=== PATIENT | male | born 1935 | race Caucasian/White ===

== ENCOUNTER 2018-09-10 10:42 | Emergency (ER) | payer MEDICARE, MEDICAID ==
[2018-09-10 10:48] VITALS: BP 132/73
[2018-09-10 12:08] LABS: ANION GAP 12.3; CHLORIDE,CL 97 mmol/L (101-111); SODIUM,NA 130 mmol/L (135-145)
[2018-09-10] MEDS ORDERED: Iopamidol 612 MG/ML 75 ML Bottle IVPUSH ONE (12:13)
[2018-09-10] MEDS ORDERED: Sodium Chloride 0.9% 10 ML Syringe FLUSH PRN (12:14)
[2018-09-10] MEDS ORDERED: LORazepam 2 MG/ML Syringe IVPUSH ONE (12:50)
--- NOTE | 2018-09-10 13:27 | CT ---
Clinical history: 83-year-old obese mentally challenged male with abdominal pain, clinically "worsening". Scan technique: Volume acquisition of data emergency CT scan abdomen and pelvis obtained without oral contrast but during intravenous ministration 75 cc nonionic Isovue contrast (3 cc/s via injector) while patient was lying supine on the Siemens multi slice CT scanner [place], [place]. Respiratory motion artifact. All data archived in the PACS system for storage, reformatting and study. Interpretation: 1. The liver is shifted to the left (midline) with the distended gallbladder now in the LUQ (no intraluminal calcifications or associated intra/extrahepatic biliary duct dilatation). Hepatic size/configuration and normal spleen high LUQ beneath diaphragm. 2. Small sliding hiatus hernia. Stomach, pancreas, adrenal glands and kidneys unremarkable. No renal stones or obstruction. 3. Midline urinary bladder extends up with the dome at the level of the umbilicus (bladder not particularly distended; no stones). 4. Stool concentrated in the rectosigmoid colon and diverticula scattered in the descending left colon but no sign of bowel mass or mechanical obstruction. Normal appendix RLQ. No mesenteric/retroperitoneal lymphadenopathy. No ascites/free air. 5. Normal caliber aortoiliac vessels. Chronic lower thoracic disc disease. Normal lumbar spine. 6. Bibasilar platelike atelectasis. CONCLUSION: Obstipation. Unusual location/anatomy liver. Bibasilar atelectasis/bronchiectasis. No acute intraperitoneal abnormality i.e. no mass, lymphadenopathy, ascites, signs of mechanical bowel obstruction or free air.
--- NOTE | 2018-09-13 11:27 | ER ---
SUBJECTIVE: The patient is an 83-year-old male who is brought in because of some suspected abdominal discomfort. He has not had a stool for 7 days according to his caregivers. The patient has significant mental retardation and lives in a facility. No fevers, no trauma, no bleeding. His bladder function has not changed, but he did have 3 episodes of nonbloody nausea, vomiting. Recently, he was also diagnosed with pneumonia, he is on antibiotics including Levaquin. He is taking and tolerating his medicines well. PAST MEDICAL HISTORY: Significant for chronic constipation, mental retardation, polyuria, varicose veins. CURRENT MEDICATIONS: Include: 1. Vitamin D3. 2. Docusate sodium 100 mg p.o. b.i.d. 3. Multivitamin p.o. daily. ALLERGIES: He has no allergies. SOCIAL HISTORY: Lives at a facility. He has MR, no substance abuse. REVIEW OF SYSTEMS: Did have a recent pneumonia, he is doing well with this. No fevers. He did have 3 episodes of nonbloody nausea and vomiting. No bowel movement for 7 days. Caregivers wonder if he has abdominal pain. OBJECTIVE: Vital Signs: Stable. He is afebrile. Oxygen is 97% on room air. General: Pleasant, no distress. HEENT: Normocephalic, atraumatic. No respiratory distress. Moving air well. General: He is obese. Abdomen: Soft, benign. It does not appear to be tender and it is obese. Unsure if more obese than normal or any further distention than normal. Back: Nontender, unremarkable. LABORATORY DATA/STUDIES: White count is normal at 7.2, hemoglobin and hematocrit are 13.7 and 41.1. Sodium was 130. Potassium is normal. BUN and creatinine are normal. Lactic acid is normal at 0.8. LFTs and total bili are normal. Amylase is normal. CAT scan of his abdomen because of the 7 days of no stool, suspected pain and because of his MR and inability to provide a good history, was obtained to make sure the patient does not have diverticulitis, bowel obstruction, or other acute findings. The CAT scan abdomen and pelvis was not remarkable for acute findings except obstipation and abundant stool. ASSESSMENT: Constipation/obstipation in patient with history of chronic constipation. PLAN: Recommend increase fluids, fiber, keep active, fresh fruits and vegetables, more grains, give patient raisins and prunes as needed. Purchase a bottle of magnesium citrate, and feed to patient per bottle instructions. I will recommend enemas at facility as needed. Follow up with PCP next week. [facility] /[id number]
== END 2018-09-10 14:05 | disposition home or self-care (01) ==
LOC: DL.ED 10:42
DX: K59.00 Constipation, unspecified (principal); Z79.899 Other long term (current) drug therapy
CPT/HCPCS: 36415; 74177; 80053; 82150; 83605; 85025; 87040; 96374; 99284; J2060; Q9967

== ENCOUNTER 2020-08-09 15:19 | Emergency (ER) | payer MEDICARE, MEDICAID ==
[2020-08-09] MEDS ORDERED: Lidocaine 2% Jelly 10 ML Urojet MUCMEM ONE (15:24)
[2020-08-09 15:30] VITALS: BP 123/98; PULSE 84
--- NOTE | 2020-08-09 16:03 | EDM.PDOC ---
<Joe Ingram - Last Filed: 08/09/20 18:25> ED HPI GENERAL MEDICAL PROBLEM - General Chief Complaint: Abdominal Pain Stated Complaint: URINATING PROBLEMS Time Seen by Provider: 08/09/20 15:30 Source of Information: Reports: Old Records, Provider (Bree Young NP), RN, RN Notes Reviewed History Limitations: Reports: Other (Severe M.R. non-verbal pt) - History of Present Illness INITIAL COMMENTS - FREE TEXT/NARRATIVE: Pt sent to ER by Bree Young NP with report that the pt who resides at a nursing home has not had a BM for 5 days, and has not passed any urine for about 24 hours. Pt is non-verbal. Caregiver and nursing home nurse do not think the pt has had any fever and denies vomiting. Onset Date: 08/04/20 Duration: Constant Location: Reports: Abdomen Improves with: Reports: None Worsens with: Reports: None Associated Symptoms: Reports: No Other Symptoms - Related Data Allergies Allergy/AdvReac Type Severity Reaction Status Date / Time No Known Allergies Allergy Verified 08/09/20 15:43 Home Meds: Home Meds Cholecalciferol (Vitamin D3) [Vitamin D] 1,000 unit PO DAILY 08/10/14 [History] Docusate Sodium [Colace] 100 mg PO BID 08/10/14 [History] Multivitamin with Minerals [Multiple Vitamin] 1 tab PO DAILY 08/10/14 [History] Ciprofloxacin [Ciprofloxacin HCl] 250 mg PO BID 08/09/20 [History] Magnesium Hydroxide [Milk of Magnesia] 30 ml PO DAILY PRN 08/09/20 [History] Past Medical History HEENT History: Reports: None Cardiovascular History: Reports: None Respiratory History: Reports: None Gastrointestinal History: Reports: Chronic Constipation, Other (See Below) Other Gastrointestinal History: PICA Genitourinary History: Reports: Prostate Disorder, Other (See Below) Other Genitourinary History: frequency of micturition Musculoskeletal History: Reports: None Neurological History: Reports: Speech Problems, Other (See Below) Other Neuro History: Patient is non-verbal, severe mental handicap Psychiatric History: Reports: Other (See Below) Other Psychiatric History: Pica Endocrine/Metabolic History: Reports: None Hematologic History: Reports: None Immunologic History: Reports: None Oncologic (Cancer) History: Reports: None Dermatologic History: Reports: None, Other (See Below) Other Dermatologic History: vericose veins - Infectious Disease History Infectious Disease History: Reports: None - Past Surgical History Head Surgeries/Procedures: Reports: None Social & Family History - Family History Family Medical History: No Pertinent Family History - Tobacco Use Tobacco Use Status *Q: Never Tobacco User Second Hand Smoke Exposure: No - Caffeine Use Caffeine Use: Reports: None - Recreational Drug Use Recreational Drug Use: No - Living Situation & Occupation Living situation: Reports: Single, Extended Care Facility Occupation: Disabled ED ROS GENERAL - Review of Systems Review Of Systems: Unable To Obtain Reason Not Obtained: non-verbal pt ED EXAM, GI/ABD - Physical Exam Exam: See Below Exam Limited By: No Limitations General Appearance: Alert, No Apparent Distress Nose: Normal Inspection Throat/Mouth: No Airway Compromise Head: Atraumatic, Normocephalic Neck: Normal Inspection Respiratory/Chest: No Respiratory Distress, Lungs Clear, Decreased Breath Sounds Cardiovascular: Regular Rate, Rhythm GI/Abdominal Exam: Normal Bowel Sounds, Soft, No Distention. No: Rigid, Rebound, Tender (Male) Exam: Deferred Rectal (Males) Exam: Deferred Neurological: Alert, Other (Severe M.R.) Course - Radiology Interpretation Free Text/Narrative:: CT Abdomen/Pelvis: Obstipation, Distended gallbladder RUQ. No SBO per Rad. report. - Re-Assessments/Exams Free Text/Narrative Re-Assessment/Exam: 08/09/20 19:00 Care of pt transferred to Christine Humphrey [employer] at shift change. Departure - Departure Disposition: Home, Self-Care 01 Condition: Good Clinical Impression: Obstipation, Acute urinary retention - Discharge Information *PRESCRIPTION DRUG MONITORING PROGRAM REVIEWED*: Not Applicable *COPY OF PRESCRIPTION DRUG MONITORING REPORT IN PATIENT CLAUDIA: Not Applicable Instructions: Constipation, Adult, Acute Urinary Retention, Male Forms: ED Department Discharge Additional Instructions: Follow up with your primary care facility. Return to ER with any worsening of problems. Sepsis Event Note (ED) - Evaluation Sepsis Screening Result: No Definite Risk <Christine Humphrey - Last Filed: 08/09/20 20:24> Course - Vital Signs Last Recorded V/S: Last Vital Signs Temp 97.4 F 08/09/20 15:26 Pulse 84 08/09/20 15:26 Resp 18 08/09/20 15:26 BP 123/98 H 08/09/20 15:26 Pulse Ox 98 08/09/20 15:26 - Orders/Labs/Meds Orders: Active Orders 24 hr Category Date Time Status Bladder Scan [RC] ASDIRECTED Care 08/09/20 15:26 Active Enema [RC] ASDIRECTED Care 08/09/20 16:27 Active Insert Souza Catheter [Insert Urinary Catheter] [OM.PC] Care 08/09/20 15:23 Ordered Stat Remove Souza Catheter [Urinary Catheter Removal] [RC] Care 08/09/20 16:31 Active PER UNIT ROUTINE Urinary Catheter Assessment [RC] ASDIRECTED Care 08/09/20 15:24 Active Labs: Laboratory Tests 08/09/20 08/09/20 08/09/20 Range/Units 15:40 15:48 15:48 WBC 4.3 L (5.0-10.0) 10^3/uL RBC 4.47 L (4.6-6.2) 10^6/uL Hgb 14.2 (14.0-18.0) g/dL Hct 43.2 (40.0-54.0) % MCV 96.6 (80-100) fL MCH 31.8 (27.0-34.0) pg MCHC 32.9 L (33.0-35.0) g/dL Plt Count 115 L D (150-450) 10^3/uL Neut % (Auto) 53.6 (42.2-75.2) % Lymph % (Auto) 25.7 (20.5-50.1) % Roberts % (Auto) 17.5 H (2-8) % Eos % (Auto) 3.0 (1.0-3.0) % Baso % (Auto) 0.2 (0.0-1.0) % Sodium 140 (136-145) mmol/L Potassium 4.2 (3.5-5.1) mmol/L Chloride 101 (98-107) mmol/L Carbon Dioxide 30 (21-32) mmol/L Anion Gap 13.2 H (7-13) mEq/L BUN 20 H (7-18) mg/dL Creatinine 0.97 (0.70-1.30) mg/dL Est Cr Clr Drug Dosing 42.22 mL/min Estimated GFR (MDRD) > 60 Glucose 88 (74-99) mg/dL Calcium 8.8 (8.5-10.1) mg/dL Urine Color Dark yellow (YELLOW) Urine Appearance Clear (CLEAR) Urine pH 5.5 (5.0-9.0) Ur Specific [place] >= 1.030 (1.005-1.030) Urine Protein Negative (NEGATIVE) Urine Glucose (UA) Negative (NEGATIVE) Urine Ketones Negative (NEGATIVE) Urine Occult Blood Negative (NEGATIVE) Urine Nitrite Negative (NEGATIVE) Urine Bilirubin Negative (NEGATIVE) Urine Urobilinogen 0.2 (0.2-1.0) mg/dL Ur Leukocyte Esterase Negative (NEGATIVE) Meds: Medications Discontinued Medications Generic Name Dose Route Start Last Admin Trade Name Freq PRN Reason Stop Dose Admin Bisacodyl 10 mg 08/09/20 16:22 08/09/20 16:48 Dulcolax PO 08/09/20 16:23 10 mg ONETIME ONE Administration Lactulose 20 gm 08/09/20 16:22 08/09/20 16:48 Cephulac PO 08/09/20 16:23 20 gm ONETIME ONE Administration Lactulose 20 gm 08/09/20 18:50 08/09/20 19:11 Cephulac PO 08/09/20 18:51 20 gm ONETIME ONE Administration Lidocaine HCl 10 ml 08/09/20 15:24 08/09/20 16:06 Xylocaine 2% Jelly MUCMEM 08/09/20 15:25 Not Given ONETIME ONE - Re-Assessments/Exams Free Text/Narrative Re-Assessment/Exam: 08/09/20 20:23 Nursing staff called with report of 2 medium hard stools, and 1 very large soft stool. Departure - Departure Time of Disposition: 20:23 Sepsis Event Note (ED) - Focused Exam Vital Signs: Vital Signs Temp Pulse Resp BP Pulse Ox 08/09/20 15:26 97.4 F 84 18 123/98 H 98
[2020-08-09] MEDS ORDERED: Lactulose Soln 10 GM/15 ML 30 ML UD Cup PO ONE ×2 (16:22→18:50)
[2020-08-09] MEDS ORDERED: Bisacodyl 5 MG Tab PO ONE (16:22)
[2020-08-09 16:27] LABS: ANION GAP 13.2 mEq/L (7-13); CHLORIDE,CL 101 mmol/L (98-107); SODIUM,NA 140 mmol/L (136-145)
--- NOTE | 2020-08-09 16:35 | CT ---
EXAMINATION: Abdomen Pelvis wo Cont SEX: Male AGE: 85 years CLINICAL HISTORY: 85-year-old 162 pound male "REM" patient has had "no bowel movement for the past 5 days and no urinary output past 24 hours". Retention? Comparison exam 10 September 2018 revealed "obstipation" (no signs of mechanical bowel obstruction). Scan technique: Volume acquisition of data emergency unenhanced CT scan of the abdomen and pelvis obtained with the patient lying supine on the Siemens multislice scanner [place], [place]. All data archived PACS system for storage, reformatting axial/sagittal/coronal planes, study. Interpretation: 1. Indwelling catheter (Souza balloon inflated with air and liquid) tip appears pressed against thickened anterior wall of the empty urinary bladder. No bladder stones. 2. Symmetric reniform size axis and configuration. No sign of cortical mass lesion (unenhanced exam), nephrolithiasis or obstructive uropathy i.e. no pyelocaliectasis or ureterectasis. Serum creatinine? GFR? 3. Large volume of stool impacted in the rectum and concentrated in the splenic flexure of the colon. No pelvic or abdominal mass lesion. No mesenteric or retroperitoneal lymphadenopathy. No foreign bodies. 4. No inflammatory "dirty" peritoneal fat, ventral wall defect, signs of mechanical bowel obstruction, ascites or free intraperitoneal air. 5. Distended gallbladder RUQ (no calcified gallstones). Unenhanced liver, stomach, spleen, atrophic pancreas, and adrenal glands unremarkable. 6. Normal caliber aortoiliac vessels. Chronic disc disease T11-12. Large heart. Lung bases clear. CONCLUSION: Obstipation. Distended gallbladder RUQ. Indwelling urinary bladder catheter. No sign of mechanical bowel obstruction or acute peritonitis.
== END 2020-08-09 20:40 | disposition home or self-care (01) ==
LOC: DL.ED 15:19
DX: K59.00 Constipation, unspecified (principal); R33.9 Retention of urine, unspecified
CPT/HCPCS: 36415; 51798; 74176; 80048; 81003; 85025; 99284; A9270; 99283

== ENCOUNTER 2022-06-20 13:00 | Emergency (ER) | payer MEDICARE, MEDICAID ==
[2022-06-20 13:13] VITALS: BP 138/63; PULSE 97
[2022-06-20 13:32] LABS: ANION GAP 8.6 mEq/L (7-13); CHLORIDE,CL 103 mmol/L (98-107); SODIUM,NA 139 mmol/L (136-145)
[2022-06-20 13:36] LABS: ESTIMATED GFR 68 mL/min (>=60)
[2022-06-20 14:21] LABS: CORONAVIRUS COVID-19 NAA NEGATIVE (NEGATIVE); RESPIRATORY SYNCYTIAL VIR NAA NEGATIVE (NEGATIVE)
== END 2022-06-20 15:34 ==
LOC: DL.ED 13:00
DX: J18.9 Pneumonia, unspecified organism (principal); Z20.822 Contact with and (suspected) exposure to COVID-19
CPT/HCPCS: 0241U; 36415; 71045; 80053; 81001; 83605; 83735; 84145; 85025; 86140; 99285; C1758

== ENCOUNTER 2022-07-17 04:00 | Inpatient (IN) | payer MEDICARE, MEDICAID ==
[2022-07-17] MEDS ORDERED: Sodium Chloride 0.9% 1,000 ML IV ONE ×2 (04:07→04:33)
[2022-07-17] MEDS ORDERED: Ondansetron 4 MG/2 ML SDV IVPUSH ONE (04:34)
[2022-07-17] MEDS ORDERED: Pantoprazole 40 MG Vial IVPUSH ONE (04:42)
[2022-07-17 05:04] LABS: CORONAVIRUS COVID-19 NAA NEGATIVE (NEGATIVE); RESPIRATORY SYNCYTIAL VIR NAA NEGATIVE (NEGATIVE)
[2022-07-17 05:28] LABS: ANION GAP 10.4 mEq/L (7-13); CHLORIDE,CL 116 mmol/L (98-107); SODIUM,NA 146 mmol/L (136-145)
[2022-07-17 05:32] LABS: ESTIMATED GFR 88 mL/min (>=60)
[2022-07-17] MEDS ORDERED: Ondansetron 4 MG/2 ML SDV IVPUSH PRN (06:27)
[2022-07-17] MEDS ORDERED: Acetaminophen/HYDROcodone 325-5 MG Tab PO PRN (06:27)
[2022-07-17] MEDS ORDERED: Albuterol/Ipratropium 3.0-0.5 MG/3 ML Neb Soln NEB PRN (06:27)
[2022-07-17] MEDS ORDERED: Acetaminophen 325 MG Tab PO PRN (06:27)
[2022-07-17] MEDS ORDERED: HYDROmorphone 0.5 MG/0.5 ML Syringe IVPUSH PRN (06:27)
[2022-07-17] MEDS ORDERED: Norepinephrine 4 MG in Dextrose 5% in Water 246 ML IV SCH ×2 (06:45)
[2022-07-17] MEDS: Midodrine 2.5 MG Tab PO SCH ×5 (09:25→21:00)
[2022-07-17] MEDS: Sucralfate Suspension 1 GM/10 ML Cup PO SCH ×3 (10:16→19:52)
[2022-07-17] MEDS: Pantoprazole 40 MG in Sodium Chloride 0.9% 100 ML IV SCH ×3 (10:23→20:40)
[2022-07-17] MEDS ORDERED: Potassium Chloride 20 MEQ in Premix Bag 1 BAG IV ONE (12:24)
[2022-07-17] MEDS ORDERED: Dextrose 5%-Lactated Ringers 1,000 ML IV SCH (12:30)
[2022-07-18] MEDS: Sucralfate Suspension 1 GM/10 ML Cup PO SCH ×3 (00:48→11:08)
[2022-07-18] MEDS: Sodium Chloride 0.9% 10 ML Syringe FLUSH PRN ×2 (01:03→08:21)
[2022-07-18 07:05] LABS: ANION GAP 9.1 mEq/L (7-13)
[2022-07-18 08:09] VITALS: BP 111/60; PULSE 74
[2022-07-18] MEDS: Midodrine 2.5 MG Tab PO SCH (08:31)
[2022-07-18] MEDS ORDERED: Magnesium Sulfate/Water 2 GM in Premix Bag 1 BAG IV ONE (09:00)
== END 2022-07-18 11:55 | disposition home or self-care (01) | DRG 378 ==
LOC: DL.ED 04:00 → DL.MS 05:30
PROVIDERS: ADMIT Internal Medicine; ATTEND Internal Medicine
PROC: 30233N1 Transfusion of Nonautologous Red Blood Cells into Peripheral Vein, Percutaneous Approach (ICD-10-PCS; principal; 2022-07-17)
DX: K92.2 Gastrointestinal hemorrhage, unspecified (principal); E44.0 Moderate protein-calorie malnutrition; E87.1 Hypo-osmolality and hyponatremia; D50.9 Iron deficiency anemia, unspecified; I95.9 Hypotension, unspecified; D75.839 Thrombocytosis, unspecified; E87.8 Other disorders of electrolyte and fluid balance, not elsewhere classified; E83.51 Hypocalcemia; E87.6 Hypokalemia; R62.50 Unspecified lack of expected normal physiological development in childhood; K59.09 Other constipation; E55.9 Vitamin D deficiency, unspecified; Z20.822 Contact with and (suspected) exposure to COVID-19; N40.1 Benign prostatic hyperplasia with lower urinary tract symptoms; R35.0 Frequency of micturition; I44.7 Left bundle-branch block, unspecified; F98.3 Pica of infancy and childhood; I83.93 Asymptomatic varicose veins of bilateral lower extremities; R26.89 Other abnormalities of gait and mobility; Z79.899 Other long term (current) drug therapy; F72 Severe intellectual disabilities; Z68.30 Body mass index [BMI] 30.0-30.9, adult
CPT/HCPCS: 0241U; 36415; 36430; 51701; 80048; 80053; 81001; 82272; 82533; 83540; 83550; 83605; 83735; 84484; 85014; 85018; 85025; 85045; 85610; 86850; 86900; 86901; 86920; 86922; 87040; 93005; 93010; 96361; 96374; 96375; 99223; 99238; 99285; 99285-25; A9270-GY; C9113; J2405; J3475; J3480; J3490; J7030; J7121; P9016

== ENCOUNTER 2023-05-23 13:42 | Emergency (ER) | payer MEDICARE, MEDICAID ==
[2023-05-23 15:00] LABS: BASOPHILS PERCENT AUTO 0.2 % (0.0-1.0); EOSINOPHILS PERCENT AUTO 3.2 % (1.0-3.0); HEMATOCRIT 39.7 % (40.0-54.0); HEMOGLOBIN 13.5 g/dL (14.0-18.0); LYMPHOCYTES PERCENT AUTO 19.3 % (20.5-50.1); MEAN CORPUSCULAR HEMOGLOBIN 33.7 pg (27.0-34.0); MONOCYTES PERCENT AUTO 18.1 % (2-8); NEUTROPHILS PERCENT AUTO 59.2 % (42.2-75.2); PLATELET COUNT,PLT 168 10^3/uL (150-450); RED BLOOD CELL COUNT 4.01 10^6/uL (4.6-6.2); WHITE BLOOD CELL COUNT,WBC 5.3 10^3/uL (5.0-10.0)
[2023-05-23 15:21] LABS: A/G RATIO 0.57; ALANINE AMINOTRANSFERASE,ALT 16 U/L (16-63); ALBUMIN 2.4 g/dL (3.4-5.0); ALKALINE PHOSPHATASE 118 U/L (46-116); ANION GAP 7.2 mEq/L (7-13); ASPARTATE AMNIOTRANSFERASE,AST 14 U/L (15-37); BILIRUBIN TOTAL 0.4 mg/dL (0.2-1.0); BLOOD UREA NITROGEN,BUN 19 mg/dL (7-18); BUN/CREATININE RATIO 18.8 (No establ ref range); CALCIUM 8.8 mg/dL (8.5-10.1); CARBON DIOXIDE,CO2 30 mmol/L (21-32); CHLORIDE,CL 104 mmol/L (98-107); CREATININE 1.01 mg/dL (0.70-1.30); ESTIMATED GFR 71 mL/min (>=60); GLUCOSE RANDOM 106 mg/dL (70-99); POTASSIUM,K 4.2 mmol/L (3.5-5.1); PROTEIN TOTAL,TP 6.6 g/dL (6.4-8.2); SODIUM,NA 137 mmol/L (136-145)
[2023-05-23 16:16] VITALS: BP 156/79; PULSE 77
[2023-05-23] MEDS ORDERED: Mupirocin Oint 22 GM Tube TOP ONE (16:39)
[2023-05-23] MEDS ORDERED: Ciprofloxacin 0.3% Ophth Soln 5 ML Bottle EYELF ONE (16:39)
== END 2023-05-23 16:55 | disposition home or self-care (01) ==
LOC: DL.ED 13:42
DX: L01.00 Impetigo, unspecified (principal); H10.022 Other mucopurulent conjunctivitis, left eye
CPT/HCPCS: 36415; 80053; 85025; 87040; 99283; 99284; A9270-GY

== ENCOUNTER 2023-06-22 19:26 | Emergency (ER) | payer MEDICARE, MEDICAID ==
[2023-06-22] MEDS ORDERED: Sodium Chloride 0.9% 10 ML Syringe FLUSH PRN (19:34)
[2023-06-22 19:55] LABS: BASOPHILS PERCENT AUTO 0.1 % (0.0-1.0); EOSINOPHILS PERCENT AUTO 0.7 % (1.0-3.0); HEMOGLOBIN 13.3 g/dL (14.0-18.0); LYMPHOCYTES PERCENT AUTO 8.3 % (20.5-50.1); MEAN CORPUSCULAR HEMOGLOBIN 32.4 pg (27.0-34.0); MEAN CORPUSCULAR HGB CONC 32.4 g/dL (33.0-35.0); MEAN CORPUSCULAR VOLUME 99.8 fL (80-100); MONOCYTES PERCENT AUTO 6.6 % (2-8); NEUTROPHILS PERCENT AUTO 84.3 % (42.2-75.2); PLATELET COUNT,PLT 139 10^3/uL (150-450); RED BLOOD CELL COUNT 4.11 10^6/uL (4.6-6.2); WHITE BLOOD CELL COUNT,WBC 7.4 10^3/uL (5.0-10.0)
[2023-06-22 20:12] LABS: PROTHROMBIN TIME 10.7 SEC (9.0-12.0); PTT,PARTIAL THROMBOPLSTIN TIME 26.3 SEC (22.0-34.0)
[2023-06-22 20:14] LABS: B-TYPE NATRIURETIC PEPTIDE,BNP 59 pg/ml (0-100)
[2023-06-22 20:15] VITALS: BP 102/25; PULSE 74
[2023-06-22 20:16] LABS: ALANINE AMINOTRANSFERASE,ALT 25 U/L (16-63); ALBUMIN 2.5 g/dL (3.4-5.0); ALKALINE PHOSPHATASE 117 U/L (46-116); ANION GAP 11.4 mEq/L (7-13); ASPARTATE AMNIOTRANSFERASE,AST 19 U/L (15-37); BILIRUBIN TOTAL 0.3 mg/dL (0.2-1.0); BLOOD UREA NITROGEN,BUN 19 mg/dL (7-18); BUN/CREATININE RATIO 14.8 (No establ ref range); C-REACTIVE PROTEIN 2.11 ng/dL (<=0.50); CALCIUM 8.3 mg/dL (8.5-10.1); CARBON DIOXIDE,CO2 28 mmol/L (21-32); CHLORIDE,CL 105 mmol/L (98-107); CREATININE 1.28 mg/dL (0.70-1.30); GLUCOSE RANDOM 130 mg/dL (70-99); MAGNESIUM 1.6 mg/dL (1.8-2.4); POTASSIUM,K 4.4 mmol/L (3.5-5.1); PROTEIN TOTAL,TP 5.9 g/dL (6.4-8.2); SODIUM,NA 140 mmol/L (136-145)
[2023-06-22 20:17] LABS: A/G RATIO 0.74; ESTIMATED GFR 54 mL/min (>=60)
[2023-06-22 20:24] LABS: LACTIC ACID 2.1 mmol/L (0.4-2.0)
[2023-06-22 20:30] LABS: CORONAVIRUS COVID-19 NAA NEGATIVE (NEGATIVE); INFLUENZA A NAA NEGATIVE (NEGATIVE); INFLUENZA B NAA NEGATIVE (NEGATIVE); RESPIRATORY SYNCYTIAL VIR NAA NEGATIVE (NEGATIVE)
[2023-06-22] MEDS ORDERED: Sodium Chloride 0.9% 1,000 ML IV ONE (20:50)
[2023-06-22] MEDS ORDERED: Meropenem 1 GM SDV IVPUSH ONE (20:56)
[2023-06-22] MEDS ORDERED: VANCOmycin 1.75 GM/350 ML 350 ML IV ONE (21:15)
[2023-06-22] MEDS ORDERED: Albuterol/Ipratropium 3.0-0.5 MG/3 ML Neb Soln NEB ONE (21:19)
[2023-06-22 21:22] LABS: APPEARANCE,URINE CLEAR (CLEAR); BILIRUBIN,URINE NEGATIVE (NEGATIVE); COLOR,URINE YELLOW (YELLOW); GLUCOSE,URINE NEGATIVE (NEGATIVE); KETONES,URINE NEGATIVE (NEGATIVE); LEUKOCYTE ESTERASE,URINE NEGATIVE (NEGATIVE); NITRITE,URINE NEGATIVE (NEGATIVE); OCCULT BLOOD,URINE NEGATIVE (NEGATIVE); PH,URINE 5.5 (5.0-9.0); PROTEIN,URINE NEGATIVE (NEGATIVE); UROBILINOGEN,URINE 0.2 mg/dL (0.2-1.0)
== END 2023-06-22 22:05 ==
LOC: DL.ED 19:26
DX: J69.0 Pneumonitis due to inhalation of food and vomit (principal); Z20.822 Contact with and (suspected) exposure to COVID-19
CPT/HCPCS: 0241U; 36415; 71045; 80053; 81003; 82947; 83605; 83735; 83880; 84145; 84484; 85025; 85610; 85730; 86140; 87040; 93005; 96365; 96375; 99285; J2185; J3370; J7030; J3490; J7620-GY

== ENCOUNTER 2023-08-19 15:03 | Inpatient (IN) | payer MEDICARE, MEDICAID ==
[2023-08-19 15:40] LABS: HEMATOCRIT 45.2 % (40.0-54.0); HEMOGLOBIN 15.1 g/dL (14.0-18.0); LYMPHOCYTES PERCENT AUTO 1.7 % (20.5-50.1); MEAN CORPUSCULAR HEMOGLOBIN 32.2 pg (27.0-34.0); MEAN CORPUSCULAR HGB CONC 33.4 g/dL (33.0-35.0); MEAN CORPUSCULAR VOLUME 96.4 fL (80-100); MONOCYTES PERCENT AUTO 7.7 % (2-8); NEUTROPHILS PERCENT AUTO 90.6 % (42.2-75.2); PLATELET COUNT,PLT 168 10^3/uL (150-450); RED BLOOD CELL COUNT 4.69 10^6/uL (4.6-6.2); WHITE BLOOD CELL COUNT,WBC 19.8 10^3/uL (5.0-10.0)
[2023-08-19 15:57] LABS: ALANINE AMINOTRANSFERASE,ALT 25 U/L (16-63); ALKALINE PHOSPHATASE 122 U/L (46-116); ANION GAP 12.9 mEq/L (7-13); ASPARTATE AMNIOTRANSFERASE,AST 26 U/L (15-37); BILIRUBIN TOTAL 0.6 mg/dL (0.2-1.0); BLOOD UREA NITROGEN,BUN 20 mg/dL (7-18); BUN/CREATININE RATIO 18.5 (No establ ref range); CALCIUM 9.6 mg/dL (8.5-10.1); CARBON DIOXIDE,CO2 27 mmol/L (21-32); CHLORIDE,CL 103 mmol/L (98-107); CREATININE 1.08 mg/dL (0.70-1.30); GLUCOSE RANDOM 118 mg/dL (70-99); POTASSIUM,K 4.9 mmol/L (3.5-5.1); PROTEIN TOTAL,TP 7.3 g/dL (6.4-8.2); SODIUM,NA 138 mmol/L (136-145)
[2023-08-19 15:58] LABS: ESTIMATED GFR 66 mL/min (>=60)
[2023-08-19 16:15] LABS: CORONAVIRUS COVID-19 NAA NEGATIVE (NEGATIVE); INFLUENZA A NAA NEGATIVE (NEGATIVE); INFLUENZA B NAA NEGATIVE (NEGATIVE); RESPIRATORY SYNCYTIAL VIR NAA NEGATIVE (NEGATIVE)
[2023-08-19] MEDS: Sodium Chloride 0.9% 10 ML Syringe FLUSH PRN (16:19)
[2023-08-19 16:26] LABS: APPEARANCE,URINE CLEAR (CLEAR); BILIRUBIN,URINE NEGATIVE (NEGATIVE); COLOR,URINE YELLOW (YELLOW); GLUCOSE,URINE NEGATIVE (NEGATIVE); KETONES,URINE TRACE (NEGATIVE); LEUKOCYTE ESTERASE,URINE NEGATIVE (NEGATIVE); NITRITE,URINE NEGATIVE (NEGATIVE); OCCULT BLOOD,URINE LARGE (NEGATIVE); PH,URINE 5.5 (5.0-9.0); PROTEIN,URINE NEGATIVE (NEGATIVE); UROBILINOGEN,URINE 0.2 mg/dL (0.2-1.0)
[2023-08-19 16:37] LABS: AMORPHOUS SEDIMENT,URINE FEW /HPF (NOT SEEN); BACTERIA,URINE FEW /HPF (0-FEW/HPF); EPITHELIAL CELLS,URINE RARE /HPF (NOT SEEN); MUCUS,URINE FEW /LPF (NOT SEEN); RBC,URINE 50-75 /HPF (0-5); WBC,URINE 0-5 /HPF (0-5/HPF)
[2023-08-19] MEDS: cefTRIAXone 1 GM Vial IVPUSH ONE (17:17)
[2023-08-19] MEDS: Azithromycin 500 MG in Sodium Chloride 0.9% 250 ML IV ONE (17:17)
[2023-08-19] MEDS ORDERED: Bisacodyl 5 MG Tab PO PRN (20:02)
[2023-08-19] MEDS ORDERED: Albuterol 0.083% 2.5 MG/3 ML Neb Soln NEB PRN (20:02)
[2023-08-19] MEDS ORDERED: Acetaminophen 325 MG Tab PO PRN (20:02)
[2023-08-19] MEDS ORDERED: Docusate Sodium 100 MG Cap PO PRN (20:02)
[2023-08-19] MEDS ORDERED: Acetaminophen/HYDROcodone 325-5 MG Tab PO PRN (20:02)
[2023-08-19] MEDS ORDERED: Ondansetron 4 MG/2 ML SDV IVPUSH PRN (20:02)
[2023-08-19] MEDS ORDERED: Albuterol/Ipratropium 3.0-0.5 MG/3 ML Neb Soln NEB PRN (20:02)
[2023-08-20 06:34] LABS: BASOPHILS PERCENT AUTO 0.1 % (0.0-1.0); EOSINOPHILS PERCENT AUTO 0.3 % (1.0-3.0); HEMATOCRIT 39.4 % (40.0-54.0); HEMOGLOBIN 13.3 g/dL (14.0-18.0); LYMPHOCYTES PERCENT AUTO 5.4 % (20.5-50.1); MEAN CORPUSCULAR HEMOGLOBIN 32.5 pg (27.0-34.0); MEAN CORPUSCULAR HGB CONC 33.8 g/dL (33.0-35.0); MEAN CORPUSCULAR VOLUME 96.3 fL (80-100); MONOCYTES PERCENT AUTO 6.4 % (2-8); NEUTROPHILS PERCENT AUTO 87.8 % (42.2-75.2); PLATELET COUNT,PLT 147 10^3/uL (150-450); RED BLOOD CELL COUNT 4.09 10^6/uL (4.6-6.2)
[2023-08-20 06:57] LABS: ANION GAP 8.3 mEq/L (7-13); CALCIUM 8.8 mg/dL (8.5-10.1); CREATININE 1.04 mg/dL (0.70-1.30); EST CRCL DRUG DOSING (CG) 43.45 mL/min; POTASSIUM,K 4.3 mmol/L (3.5-5.1)
[2023-08-20] MEDS: Azithromycin 250 MG Tab PO SCH ×2 (09:08→09:25)
[2023-08-20] MEDS: Enoxaparin 40 MG/0.4 ML Syringe SUBCUT SCH ×2 (09:09→09:14)
[2023-08-20] MEDS ORDERED: SODIUM PHOSPHATE MONO DIBASIC RECTAL PRN (09:14)
[2023-08-20] MEDS: Sodium Chloride 0.9% 1,000 ML IV SCH (09:14)
[2023-08-20] MEDS ORDERED: [UNRECOGNIZED DRUG - OTHER] RECTAL PRN (09:14)
[2023-08-20] MEDS: Cholecalciferol (Vitamin D3) 25 MCG Tab PO SCH (09:51)
[2023-08-20] MEDS: Lactulose Soln 10 GM/15 ML 30 ML UD Cup PO SCH (09:51)
[2023-08-20] MEDS: cefTRIAXone 1 GM Vial IVPUSH SCH (16:54)
[2023-08-20] MEDS ORDERED: cefTRIAXone 1 GM Vial IVPUSH SCH (17:00)
[2023-08-20] MEDS: Docusate Sodium 100 MG Cap PO SCH (22:14)
[2023-08-21 06:14] LABS: BASOPHILS PERCENT AUTO 0.1 % (0.0-1.0); EOSINOPHILS PERCENT AUTO 0.7 % (1.0-3.0); HEMATOCRIT 37.8 % (40.0-54.0); HEMOGLOBIN 12.6 g/dL (14.0-18.0); LYMPHOCYTES PERCENT AUTO 9.8 % (20.5-50.1); MEAN CORPUSCULAR HEMOGLOBIN 32.3 pg (27.0-34.0); MEAN CORPUSCULAR HGB CONC 33.3 g/dL (33.0-35.0); MEAN CORPUSCULAR VOLUME 96.9 fL (80-100); MONOCYTES PERCENT AUTO 9.1 % (2-8); NEUTROPHILS PERCENT AUTO 80.3 % (42.2-75.2); PLATELET COUNT,PLT 119 10^3/uL (150-450); WHITE BLOOD CELL COUNT,WBC 9.6 10^3/uL (5.0-10.0)
[2023-08-21 06:31] LABS: CALCIUM 8.4 mg/dL (8.5-10.1); CREATININE 0.96 mg/dL (0.70-1.30); EST CRCL DRUG DOSING (CG) 47.07 mL/min
[2023-08-21] MEDS: Omeprazole 20 MG Cap.CR PO SCH (08:00)
[2023-08-21] MEDS: Ferrous Sulfate 325 MG Tab PO SCH (08:00)
[2023-08-22 06:39] LABS: BASOPHILS PERCENT AUTO 0.1 % (0.0-1.0); EOSINOPHILS PERCENT AUTO 1.8 % (1.0-3.0); HEMATOCRIT 38.3 % (40.0-54.0); HEMOGLOBIN 12.9 g/dL (14.0-18.0); LYMPHOCYTES PERCENT AUTO 13.6 % (20.5-50.1); MEAN CORPUSCULAR HEMOGLOBIN 32.7 pg (27.0-34.0); MEAN CORPUSCULAR HGB CONC 33.7 g/dL (33.0-35.0); MONOCYTES PERCENT AUTO 10.4 % (2-8); NEUTROPHILS PERCENT AUTO 74.1 % (42.2-75.2); PLATELET COUNT,PLT 75 10^3/uL (150-450); RED BLOOD CELL COUNT 3.95 10^6/uL (4.6-6.2); WHITE BLOOD CELL COUNT,WBC 6.7 10^3/uL (5.0-10.0)
[2023-08-22 06:49] LABS: ANION GAP 9.9 mEq/L (7-13); CALCIUM 8.6 mg/dL (8.5-10.1); CREATININE 0.86 mg/dL (0.70-1.30); EST CRCL DRUG DOSING (CG) 52.55 mL/min; POTASSIUM,K 3.9 mmol/L (3.5-5.1)
[2023-08-22] MEDS: Magnesium Hydroxide 400 MG/5 ML Susp 30 ML Cup PO PRN (08:47)
[2023-08-22] MEDS: Bisacodyl 10 MG Supp RECTAL ONE (23:27)
[2023-08-23 06:36] LABS: BASOPHILS PERCENT AUTO 0.2 % (0.0-1.0); EOSINOPHILS PERCENT AUTO 3.9 % (1.0-3.0); HEMATOCRIT 40.1 % (40.0-54.0); HEMOGLOBIN 13.4 g/dL (14.0-18.0); LYMPHOCYTES PERCENT AUTO 15.8 % (20.5-50.1); MEAN CORPUSCULAR HEMOGLOBIN 32.1 pg (27.0-34.0); MEAN CORPUSCULAR HGB CONC 33.4 g/dL (33.0-35.0); MEAN CORPUSCULAR VOLUME 96.2 fL (80-100); MONOCYTES PERCENT AUTO 10.6 % (2-8); NEUTROPHILS PERCENT AUTO 69.5 % (42.2-75.2); PLATELET COUNT,PLT 132 10^3/uL (150-450); RED BLOOD CELL COUNT 4.17 10^6/uL (4.6-6.2); WHITE BLOOD CELL COUNT,WBC 5.6 10^3/uL (5.0-10.0)
[2023-08-23 06:54] LABS: ANION GAP 10.1 mEq/L (7-13); CALCIUM 8.8 mg/dL (8.5-10.1); CREATININE 0.78 mg/dL (0.70-1.30); EST CRCL DRUG DOSING (CG) 57.94 mL/min; POTASSIUM,K 4.1 mmol/L (3.5-5.1)
[2023-08-24 06:28] LABS: BASOPHILS PERCENT AUTO 0.2 % (0.0-1.0); EOSINOPHILS PERCENT AUTO 5.4 % (1.0-3.0); HEMATOCRIT 40.1 % (40.0-54.0); HEMOGLOBIN 13.6 g/dL (14.0-18.0); LYMPHOCYTES PERCENT AUTO 20.2 % (20.5-50.1); MEAN CORPUSCULAR HEMOGLOBIN 32.4 pg (27.0-34.0); MEAN CORPUSCULAR HGB CONC 33.9 g/dL (33.0-35.0); MEAN CORPUSCULAR VOLUME 95.5 fL (80-100); MONOCYTES PERCENT AUTO 13.2 % (2-8); PLATELET COUNT,PLT 151 10^3/uL (150-450); WHITE BLOOD CELL COUNT,WBC 4.3 10^3/uL (5.0-10.0)
[2023-08-24 06:47] LABS: ANION GAP 8.9 mEq/L (7-13); CALCIUM 8.9 mg/dL (8.5-10.1); CREATININE 0.81 mg/dL (0.70-1.30); EST CRCL DRUG DOSING (CG) 55.79 mL/min; POTASSIUM,K 3.9 mmol/L (3.5-5.1)
[2023-08-24 14:09] VITALS: BP 127/63; PULSE 83
== END 2023-08-24 13:55 | disposition home or self-care (01) | DRG 177 ==
LOC: DL.ED 15:03 → DL.MS 17:47
PROVIDERS: ADMIT Internal Medicine; ATTEND Internal Medicine
DX: J69.0 Pneumonitis due to inhalation of food and vomit (principal); J96.01 Acute respiratory failure with hypoxia; J18.9 Pneumonia, unspecified organism; R62.7 Adult failure to thrive; R63.0 Anorexia; K59.09 Other constipation; Z66 Do not resuscitate; R09.02 Hypoxemia; F79 Unspecified intellectual disabilities; Z68.27 Body mass index [BMI] 27.0-27.9, adult; Z79.899 Other long term (current) drug therapy; Z11.52 Encounter for screening for COVID-19
CPT/HCPCS: 0241U; 36415; 51701; 71045; 80048; 80053; 81001; 83605; 84484; 85025; 87040; 93005; 93010; 96365; 96375; 99284; 99285; 99223; 99232; 99238; A9270-GY; C1758; J0456; J0696; J1650; J3490; J7030; J7050

== ENCOUNTER 2023-08-25 18:31 | Emergency (ER) | payer MEDICARE, MEDICAID ==
[2023-08-25 18:36] VITALS: BP 174/85; PULSE 78
== END 2023-08-25 19:07 | disposition home or self-care (01) ==
LOC: DL.ED 18:31
DX: J18.9 Pneumonia, unspecified organism (principal)
CPT/HCPCS: 99283; 99284